=== PATIENT | male | born 1955 | race Caucasian/White ===

== ENCOUNTER 2018-06-09 01:17 | Inpatient (IN) | payer OTHER ==
[2018-06-09 01:46] LABS: ADD MAN DIFF? NO
[2018-06-09 01:48] LABS: WHITE BLOOD COUNT 7.3 10^3/ul (4.8-10.8)
[2018-06-09 01:48] LABS: BASOPHILS % 0.6 % (0.0-2.0); EOSINOPHILS # 0.1 10^3/ul (0.0-0.5); EOSINOPHILS % 1.5 % (0.0-7.0); HEMATOCRIT 41.7 % (42.0-52.0); HEMOGLOBIN 13.6 g/dl (14.0-18.0); LYMPHOCYTES # 2.4 10^3/ul (0.8-2.9); LYMPHOCYTES % 33.4 % (15.0-51.0); MEAN CORPUSCULAR HEMOGLOBIN 28.9 pg (29.0-33.0); MEAN CORPUSCULAR HGB CONC 32.6 g/dl (32.0-37.0); MEAN CORPUSCULAR VOLUME 88.5 fl (82.0-101.0); MEAN PLATELET VOLUME 10.9 fl (7.4-10.4); MONOCYTE # 0.6 10^3/ul (0.3-0.9); MONOCYTES % 7.7 % (0.0-11.0); NEUTROPHIL # 4.1 10^3/ul (1.6-7.5); NEUTROPHILS % 56.5 % (39.0-77.0); PLATELET COUNT 234 10^3/UL (140-415); RED BLOOD COUNT 4.71 10^6/ul (4.70-6.10); RED CELL DISTRIBUTION WIDTH 13.3 % (11.5-14.5)
[2018-06-09 02:08] LABS: INR 1.13; PARTIAL THROMBOPLASTIN TIME 24.3 Sec (25.0-35.0); PROTIME 14.7 Sec (11.9-14.9); PT RATIO 1.1
[2018-06-09 02:11] LABS: D-DIMER 674.44 ng/ml (<460)
[2018-06-09 02:35] LABS: ANION GAP 12 (8-16); BLOOD UREA NITROGEN 22 mg/dl (7-20); CALCIUM 9.9 mg/dl (8.4-10.2); CARBON DIOXIDE 26 mmol/L (21-31); CHLORIDE 106 mmol/L (97-110); CREATININE 1.02 mg/dl (0.61-1.24); GLUCOSE 159 mg/dl (70-220); MAGNESIUM 2.1 mg/dl (1.7-2.5); POTASSIUM 3.5 mmol/L (3.5-5.1); SODIUM 140 mmol/L (135-144)
[2018-06-09 02:46] LABS: TROPONIN-I < 0.010 ng/ml (0.000-0.120)
[2018-06-09] MEDS: IOHEXOL 100 ML (03:53)
[2018-06-09] MEDS: SOD CHLORIDE 0.9% 100 ML (03:53)
[2018-06-09] MEDS: IOHEXOL 350MG/ML 50 ML BTL (03:53)
[2018-06-09] MEDS ORDERED: DOCUSATE SODIUM 100 MG CAP PO (05:00)
[2018-06-09] MEDS ORDERED: NACL 0.9% 3 ML SYG IV (05:00)
[2018-06-09] MEDS ORDERED: BISACODYL (EC) 5 MG TAB PO (05:00)
[2018-06-09] MEDS ORDERED: ONDANSETRON 4 MG INJ IV (05:00)
[2018-06-09] MEDS: ACETAMINOPHEN 325 MG TAB PO ×2 (06:04→18:57)
[2018-06-09 06:13] LABS: CREATINE KINASE 336 IU/L (23-200)
[2018-06-09 06:21] LABS: MAGNESIUM 2.2 mg/dl (1.7-2.5)
[2018-06-09 06:21] LABS: CHOL/HDL RATIO 2.7 RATIO; CHOLESTEROL 153 mg/dl (100-200); HDL CHOLESTEROL 56 mg/dl (30-78); LDL CHOLESTEROL,CALCULATED 84 mg/dl; TRIGLYCERIDES 66 mg/dl (0-149)
[2018-06-09 06:22] LABS: CK INDEX 1.5; CK-MB 5.19 ng/ml (0.0-2.4); TROPONIN-I < 0.010 ng/ml (0.000-0.120)
[2018-06-09 08:38] LABS: HEMOGLOBIN A1C 5.8 % (0-5.9)
[2018-06-09] MEDS: ENOXAPARIN 40 MG/0.4 ML SYG SC (08:41)
[2018-06-09 09:29] LABS: CREATINE KINASE 290 IU/L (23-200)
[2018-06-09 09:36] LABS: CK INDEX 1.6; CK-MB 4.67 ng/ml (0.0-2.4); TROPONIN-I < 0.010 ng/ml (0.000-0.120)
[2018-06-09] MEDS: SOD CHLORIDE 0.9% 1,000 ML IV (17:57)
[2018-06-09] MEDS: ATORVASTATIN 10 MG TAB PO (20:36)
[2018-06-09] MEDS: HYDROCODONE/APAP (5/325) TAB PO (23:30)
[2018-06-10] MEDS: ACETAMINOPHEN 325 MG TAB PO (04:35)
[2018-06-10] MEDS: SOD CHLORIDE 0.9% 1,000 ML IV (04:38)
[2018-06-10 07:46] LABS: ADD MAN DIFF? NO
[2018-06-10 07:53] LABS: WHITE BLOOD COUNT 6.1 10^3/ul (4.8-10.8)
[2018-06-10 07:53] LABS: BASOPHILS % 0.3 % (0.0-2.0); EOSINOPHILS # 0.1 10^3/ul (0.0-0.5); HEMOGLOBIN 13.3 g/dl (14.0-18.0); MEAN CORPUSCULAR HEMOGLOBIN 28.9 pg (29.0-33.0); MEAN CORPUSCULAR HGB CONC 31.7 g/dl (32.0-37.0); MEAN CORPUSCULAR VOLUME 91.3 fl (82.0-101.0); MEAN PLATELET VOLUME 11.2 fl (7.4-10.4); MONOCYTE # 0.5 10^3/ul (0.3-0.9); MONOCYTES % 7.4 % (0.0-11.0); NEUTROPHIL # 4.5 10^3/ul (1.6-7.5); PLATELET COUNT 211 10^3/UL (140-415); RED CELL DISTRIBUTION WIDTH 13.4 % (11.5-14.5)
[2018-06-10 08:22] LABS: ALANINE AMINOTRANSFERASE 23 IU/L (13-69); ALBUMIN 3.5 g/dl (3.3-4.9); ALBUMIN/GLOBULIN RATIO 1.29; ALKALINE PHOSPHATASE 45 IU/L (42-121); ANION GAP 7 (8-16); ASPARTATE AMINO TRANSFERASE 25 IU/L (15-46); BILIRUBIN,INDIRECT 0.2 mg/dl (0-1.1); BILIRUBIN,TOTAL 0.2 mg/dl (0.2-1.3); BLOOD UREA NITROGEN 14 mg/dl (7-20); CALCIUM 9.4 mg/dl (8.4-10.2); CARBON DIOXIDE 28 mmol/L (21-31); CHLORIDE 111 mmol/L (97-110); GLUCOSE 90 mg/dl (70-220); POTASSIUM 4.1 mmol/L (3.5-5.1); SODIUM 142 mmol/L (135-144); TOTAL PROTEIN 6.2 g/dl (6.1-8.1)
[2018-06-10] MEDS: LOSARTAN 50 MG TAB PO (08:37)
[2018-06-10] MEDS: ENOXAPARIN 40 MG/0.4 ML SYG SC (08:38)
[2018-06-10] MEDS ORDERED: NON-FORMULARY/PATIENT OWN MED (Olmesartan Medoxomil (Benicar) 20 MG) PO (09:00)
[2018-06-10 12:21] LABS: CREATINE KINASE 142 IU/L (23-200)
== END 2018-06-10 15:25 | disposition home or self-care (01) | DRG 312 ==
LOC: E/R 01:17 → MS3 03:13 → MS4 21:02
DX: R55 Syncope and collapse (principal); Q61.5 Medullary cystic kidney; M62.82 Rhabdomyolysis; E78.5 Hyperlipidemia, unspecified; M25.512 Pain in left shoulder; D64.9 Anemia, unspecified; I12.9 Hypertensive chronic kidney disease with stage 1 through stage 4 chronic kidney disease, or unspecified chronic kidney disease; N18.9 Chronic kidney disease, unspecified; I83.90 Asymptomatic varicose veins of unspecified lower extremity
CPT/HCPCS: 36415; 70450; 71045; 71275; 72125; 73030; 80048; 80053; 80061; 82550; 82553; 83036; 83735; 84443; 84484; 85025; 85378; 85610; 85730; 93005; 93306; 93880; 93970; 99285-25